=== PATIENT | male | born 1950 | race Hispanic/Latino ===

== ENCOUNTER 2018-03-01 06:21 | Day surgery (SDC) | payer OTHER ==
[2018-02-26 12:29] VITALS: BP 124/71
[2018-02-26 12:38] LABS: BASOPHILS % (AUTO) 0.8 % (0.0-5.0); EOSINOPHILS % (AUTO) 2.1 % (0.0-8.0); HEMATOCRIT 39.5 % (42-54); MEAN CORPUSCULAR HEMOGLOBIN 30.2 pg (27.0-33.0); MEAN CORPUSCULAR HGB CONC 33.2 g/dL (32.0-36.0); MONOCYTES % (AUTO) 9.3 % (3.0-13.0); NEUTROPHILS % (AUTO) 51.8 % (40.0-77.0); NUCLEATED RED BLOOD CELLS 0.1 % (0.0-0.19); PLATELET COUNT (AUTO) 193 K/uL (130-400); RED BLOOD CELL COUNT(AUTO) 4.34 MIL/uL (4.50-6.20); RED CELL DISTRIBUTION WIDTH 12.9 % (11.0-15.5); WHITE BLOOD COUNT (AUTO) 5.1 K/uL (4.8-10.8)
[2018-02-26 12:45] LABS: CREATININE 1.1 mg/dL (0.5-1.5); POTASSIUM 4.3 mmol/L (3.5-5.1)
[~2018-03-01] VITALS: Ht 174 cm; Wt 88.5 kg
[2018-03-01] VITALS (15 sets, daily range): BP systolic 106–136; BP diastolic 48–69
[~2018-03-01 06:21] MED LIST: ALBUTEROL IH; ASPI-555 PO; ATOR40TA71 PO; BUSP15TA3 PO; GABA-531 PO; LISI-613 PO; METF-444 PO; MOMETASONE FUR IH; OLOD4MIS2 IH; SERT100T12 PO; TAMS0.4C32 PO; XALA2.5OS OD
[2018-03-01] MEDS ORDERED: SODIUM CHLORIDE 0.9% 1000ML 1,000 ML IV ONE (06:42)
[2018-03-01] MEDS ORDERED: CEFAZOLIN SODIUM 1 GM VIAL ONE (06:42)
[2018-03-01] MEDS: CEFAZOLIN SODIUM 1 GM VIAL IVP PRN ×2 (06:50→08:32)
[2018-03-01] MEDS ORDERED: BUPIVACAINE/EPI/PF 0.5% 30ML VIAL IJ ONE (08:05)
[2018-03-01] MEDS ORDERED: LIDOCAINE HCL MDV 0.5% 50ML VIAL IJ ONE (08:05)
[2018-03-01] MEDS ORDERED: NEOMY SULF/POLYMYXIN B SULFATE 1 ML AMPUL IR ONE (08:06)
[2018-03-01] MEDS ORDERED: MIDAZOLAM HCL 1 MG/ML 2ML VIAL ONE (08:22)
[2018-03-01] MEDS ORDERED: ROCURONIUM 10MG/1ML SYR 10 MG/ML ML ONE (08:22)
[2018-03-01] MEDS ORDERED: ONDANSETRON HCL 4 MG/2 ML VIAL ONE (08:22)
[2018-03-01] MEDS ORDERED: LIDOCAINE PF 2% 5ML ABBOJECT ONE (08:22)
[2018-03-01] MEDS ORDERED: NEOSTIGMINE 5MG/5ML SYR IV ONE (08:22)
[2018-03-01] MEDS ORDERED: PROPOFOL 10 MG/ML 20ML VIAL IV ONE (08:22)
[2018-03-01] MEDS ORDERED: GLYCOPYRROLATE 1 MG/5 ML SYRINGE ONE (08:22)
[2018-03-01] MEDS ORDERED: DEXAMETHASONE SOD PHOSPHATE 10MG/ML 1ML VIAL ONE (08:22)
[2018-03-01] MEDS ORDERED: FENTANYL CITRATE PF 50 MCG/1 ML 2ML VIAL ONE ×2 (08:23→08:55)
[2018-03-01] MEDS ORDERED: EPHEDRINE SULFATE 50 MG/ML AMPULE ONE (08:44)
--- NOTE | 2018-03-01 10:30 | NUR ---
ASSESSMENT RECEIVED PT FROM Smita HERNÁNDEZ RN. PT AAOX3. ABD DRSG WITH RED DRAINAGE NOTED TO GAUZE. ICE BAG WITH INSTRUCTIONS ON HOME USE GIVEN TO PT AND PTS FAMILY.
--- NOTE | 2018-03-01 11:10 | NUR ---
DISCHARGE ORAL AND WRITTEN INSTRUCTIONS GIVEN TO PT AND PTS FAMILY/. NO OTHER QUESTIONS AT THIS TIME.
== END 2018-03-01 11:10 | disposition home or self-care (01) ==
LOC: DAH 06:21
PROVIDERS: ATTEND Surgery
DX: K42.9 Umbilical hernia without obstruction or gangrene (principal); Z79.899 Other long term (current) drug therapy
CPT/HCPCS: 36415; 49585; 80048; 82948 ×2; 85025; 93005; A4218; A4450; A4452; A4510; A4600; C1781; J0690; J1100; J2001; J2250; J2405; J2704; J2710; J3010 ×2; J3490 ×4; J7030; J7120

== ENCOUNTER 2018-03-01 17:25 | Emergency (ER) | payer OTHER | END 2018-03-01 18:21 | disposition home or self-care (01) | LOC: EDH 17:25 | DX: R33.9 Retention of urine, unspecified (principal); R10.9 Unspecified abdominal pain; G89.18 Other acute postprocedural pain; I10 Essential (primary) hypertension; E11.9 Type 2 diabetes mellitus without complications; F32.9 Major depressive disorder, single episode, unspecified; F41.9 Anxiety disorder, unspecified; Z98.890 Other specified postprocedural states; Z87.891 Personal history of nicotine dependence | CPT/HCPCS: 51702 ==

== ENCOUNTER → 2019-11-15 | Outpatient (CLI) | payer OTHER ==
[~2019-11-15] MED LIST changes: -ASPI-555 PO; +ASPI-556 PO
== END | disposition home or self-care (01) ==
LOC: RAH 12:57
PROVIDERS: ATTEND Internal Medicine Cardiovascular Disease
DX: J98.11 Atelectasis (principal); M47.814 Spondylosis without myelopathy or radiculopathy, thoracic region; I25.10 Atherosclerotic heart disease of native coronary artery without angina pectoris
CPT/HCPCS: 71250

== ENCOUNTER 2022-03-25 05:41 | Day surgery (SDC) | payer OTHER ==
[2022-03-21 10:46] LABS: BASOPHILS % (AUTO) 0.7 % (0.0-5.0); EOSINOPHILS % (AUTO) 2.5 % (0.0-8.0); HEMATOCRIT 39.5 % (42-54); LYMPHOCYTES % (AUTO) 28.2 % (21.0-51.0); MEAN CORPUSCULAR HEMOGLOBIN 30.7 pg (27.0-33.0); MEAN CORPUSCULAR HGB CONC 32.9 g/dL (32.0-36.0); MEAN CORPUSCULAR VOLUME 93.4 fL (79-99); MONOCYTES % (AUTO) 7.8 % (3.0-13.0); NEUTROPHILS % (AUTO) 59.3 % (40.0-77.0); PLATELET COUNT (AUTO) 251 K/uL (130-400); RED BLOOD CELL COUNT(AUTO) 4.23 MIL/uL (4.50-6.20); RED CELL DISTRIBUTION WIDTH 12.4 % (11.0-15.5); WHITE BLOOD COUNT (AUTO) 6.9 K/uL (4.8-10.8)
[2022-03-21 10:53] LABS: CREATININE 1.2 mg/dL (0.5-1.5); POTASSIUM 4.4 mmol/L (3.5-5.1)
[2022-03-21 10:56] LABS: INR 0.96 (0.85-1.15); PROTHROMBIN TIME 10.5 SEC (9.6-11.6)
[2022-03-21 10:58] LABS: PARTIAL THROMBOPLASTIN TIME 26.5 SEC (26.3-35.5)
[2022-03-24 11:57] VITALS: BP 117/65
[~2022-03-25] VITALS: Ht 171.4 cm; Wt 86.9 kg
[2022-03-25] VITALS (8 sets, daily range): BP systolic 103–122; BP diastolic 61–76
[~2022-03-25 05:41] MED LIST changes: +0.9%NACL 1000ML 1,000 ML IV SCH; -ALBUTEROL IH; +DORZ10DR19 OP; +DOXE50CA4 PO; +FLUT16H NASAL; -LISI-613 PO; +LISI20TA24 PO; -MOMETASONE FUR IH; +MONT-39 PO; -OLOD4MIS2 IH; +SERT-440 PO; -SERT100T12 PO; +TIOT4MIS5 IH
[2022-03-25] MEDS ORDERED: HEPARIN 10,000 UNIT/10ML (1,000 UNIT/ML) VIAL ONE (07:46)
[2022-03-25] MEDS ORDERED: LIDOCAINE HCL 1% MDV 50ML VIAL ONE (07:46)
[2022-03-25] MEDS ORDERED: MEPERIDINE-PF 25 MG/ML SYG ONE ×3 (07:51→11:13)
[2022-03-25] MEDS ORDERED: MIDAZOLAM HCL 1 MG/ML 2ML VIAL ONE ×4 (07:51→11:18)
[2022-03-25] MEDS ORDERED: ISOPROTERENOL HCL 0.2 MG/ML AMP/VIAL/BAG ONE (09:09)
[2022-03-25] MEDS ORDERED: ACETAMINOPHEN 325 MG TAB PO PRN (11:30)
== END 2022-03-25 15:00 | disposition home or self-care (01) ==
LOC: DAH 05:41
PROVIDERS: ATTEND Internal Medicine Cardiovascular Disease
DX: I47.1 Supraventricular tachycardia (principal); I49.3 Ventricular premature depolarization; I48.91 Unspecified atrial fibrillation; I10 Essential (primary) hypertension; E78.5 Hyperlipidemia, unspecified; E11.9 Type 2 diabetes mellitus without complications; Z79.01 Long term (current) use of anticoagulants; F41.9 Anxiety disorder, unspecified; Z79.899 Other long term (current) drug therapy; Z79.82 Long term (current) use of aspirin; Z79.84 Long term (current) use of oral hypoglycemic drugs; Z98.890 Other specified postprocedural states; Z82.49 Family history of ischemic heart disease and other diseases of the circulatory system
CPT/HCPCS: 80048; 85025; 85610; 85730; 36415; 93005 ×2; 93623; 93653; 82948; A4223 ×3; C1894 ×5; C1730 ×4; A4649 ×2; C1732; J7030; J3490 ×2; J1644 ×2; J2250 ×4; J2175 ×3; A4215; A4222; A4221; A4663; A4216; A4606; 99156; 99157